=== PATIENT | male | born 1970 | race Caucasian/White ===

== ENCOUNTER 2022-11-16 08:37 | Emergency (ER) | payer OTHER, SELFPAY ==
--- NOTE | ~2022-11-16 | CT_ITS ---
EXAMINATION: CT abdomen pelvis w con DATE: 11/16/2022 12:48 INDICATION: Left upper quadrant abdominal pain following a fall one week ago TECHNIQUE: Computed tomography (CT) of the abdomen and pelvis was performed with 100 CC Omnipaque 350 intravenous contrast. Automated exposure control and iterative reconstruction technique were employe d. Exam dose: 826.91 mGy-cm total exam DLP. COMPARISON: None. FINDINGS: The visualized lung bases are clear. Normal heart size. No pericardial or pleural effusion. There is thickening of the wall of the distal esophagus, possibly due to esophagitis. Normal splenic size. There is a superior splenic cleft, likely an anatomic anatomic variant. The aba ins are smooth and there is no associated perisplenic hematoma. No evidence of recent splenic lacerat ion or perisplenic hematoma. There are numerous pancreatic calcifications, particularly uncinate process, head and to a lesser ext ent pancreatic neck, consistent with chronic pancreatitis. No pancreatic mass lesion or pancreatic du ct dilatation is detected. There is diffuse hepatic steatosis. No hepatic space-occupying mass lesion is evident. No hepatic facundo face nodularity is appreciated. No hepatic space-occupying mass lesion is detected. The gallbladder is present. No gallbladder wall thickening or pericholecystic fluid or fat stranding. No bile duct dilatation. The adrenal glands are unremarkable other than possible very small mass of the lateral limb of each a drenal gland, likely very small adenomas. 5.8 mm lower pole left renal cyst. The kidneys are otherwise unremarkable. No urinary tract calculus or hydroureteronephrosis. There is atherosclerotic calcification but normal caliber of the abdominal aorta and iliac arteries. No intraperitoneal or retroperitoneal or pelvic mass lesion or adenopathy or ascites. There are bilateral fat-containing inguinal hernias and a very small fat-containing umbilical hernia. Diverticulosis of left and right colon; no CT evidence of diverticulitis. Normal appendix. No bowel obstruction, bowel wall thickening, pneumatosis or intraperitoneal free air . Prostate enlargement and mild calcification. Bilateral vas deferens calcifications, usually associated with diabetes. Moderately prominent compression fracture deformity of L5, mild compression fracture deformity of L4. IMPRESSION: Probable colonic cleft or old laceration at the superior aspect of the spleen. This does not appear recent. Hepatic steatosis Chronic pancreatitis Small left renal cyst Diverticulosis of colon; no evidence of diverticulitis Prostate enlargement and mild calcification Bilateral vas deferens calcifications, usually associated with diabetes Compression fractures of L4 and to a greater extent L5 Bilateral fat-containing inguinal hernias. Very small fat-containing umbilical hernia Reviewed, dictated and finalized at [facility]. Reviewed, dictated and finalized at [facility].
--- NOTE | 2022-11-16 08:42 | ECG_ITS ---
Measurements Intervals [place] Rate: 125 P: 31 MS: 157 QRS: 22 QRSD: 80 T: 44 QT: 318 QTc: 460 Interpretive Statements SINUS TACHYCARDIA MINIMAL ST DEPRESSION [0.025+ mV ST DEPRESSION] ABNORMAL RHYTHM ECG NO PREVIOUS ECG AVAILABLE FOR COMPARISON Electronically Signed On 11-16-2022 17:40:39 CDT by Daniel De La Cruz M.D.
[2022-11-16 08:43] VITALS: BP 113/91; PULSE 122; RESP 22; TEMP 36.4; O2SAT 98
--- NOTE | 2022-11-16 09:23 | ED.ALCOHOL ---
HPI - Alcohol General Chief Complaint: Alcohol Stated Complaint: etoh w/d Time Seen by Provider: 11/16/22 09:19 History of Present Illness HPI narrative: Pt presents from [facility] where he is undergoing medical detox for alcohol abuse and withdrawl. Pt receiving librium and got his morning dose today. Pt sent here for evaluatin of LUQ abdominal pain. Pt says he took a nasty fall a few days ago and landed on left side. Pt says he has LUQ abdominal pain that radiates across his abdoment for 3 days and getting worse. Related Data Allergies Allergy/AdvReac Type Severity Reaction Status Date / Time No Known Allergies Allergy Verified 11/16/22 08:51 Review of Systems Review of Systems: All systems reviewed & are unremarkable except as noted in HPI and below Exam Const: General: healthy appearing and no acute distress Nutritional Appearance: well nourished Orientation/consciousness: patient oriented x3 Limitations: no limitations HENMT: Head: normal to inspection Resp: Effort & Inspection: normal respiratory effort Auscultation: clear to auscultation bilaterally Cardio: Rate: regular rate Rhythm: regular rhythm GI: GI Palp: Yes Soft to palpation and Yes Tenderness to palpation present (GI) (LUQ) Auscultation: normal bowel sounds Skin: General skin exam: normal color Wounds: no wounds Neuro: General: patient oriented x3, moves all extremities, no focal motor deficits and CN's II-XI intact bilaterally Speech: normal speech Extrem: General: normal to inspection and no clubbing, cyanosis or edema Psych: Mental Status: mental status grossly normal Affect: normal affect Attitude: cooperative Course Vital Signs Vital signs: Vital Signs Temperature 97.6 F 11/16/22 08:43 Pulse Rate 122 H 11/16/22 08:43 Respiratory Rate 22 H 11/16/22 08:43 Blood Pressure 113/91 H 11/16/22 08:43 Pulse Oximetry 98 11/16/22 08:43 Oxygen Delivery Room Air 11/16/22 08:43 Temperature 97.6 F 11/16/22 08:43 Pulse Rate 100 11/16/22 14:37 Respiratory Rate 14 11/16/22 14:37 Blood Pressure 144/82 H 11/16/22 14:37 Pulse Oximetry 100 11/16/22 14:37 Oxygen Delivery Room Air 11/16/22 08:43 MDM - Alcohol MDM Narrative Medical decision making narrative: will order labs and CT to rule out splenic injury and type and screen. labs look ok no acute splenic injury on CT or free fluid. Can discharge back to rehab. Lab Data 11/16/22 11:51 11/16/22 11:51 Labs: Lab Results 11/16/22 11/16/22 11/16/22 Range/Units 11:51 11:51 11:51 WBC 6.5 (4.5-10.0) K/mm3 RBC 4.97 (4.6-6.20) M/mm3 Hgb 14.9 (14.0-18.0) g/dL Hct 45.9 (42.0-52.0) % MCV 92.4 (80-100) fl MCH 30.0 (26-34) pg MCHC 32.5 (32-36) g/dl RDW 18.9 H (11.5-14.5) % Plt Count 145 L (150-375) k/mm3 MPV 10.6 H (7.4-10.4) fl Immature Gran % (Auto) 1.1 H (0-0.5) % Neut % (Auto) 62.6 (45.5-73.1) % Lymph % (Auto) 24.2 (18.3-44.2) % [place] % (Auto) 10.6 H (2.6-8.5) % Eos % (Auto) 0.9 (0-4.4) % Baso % (Auto) 0.6 (0.2-1.2) % Lymph # (Auto) 1.57 (0.9-3.2) K/mm3 [place] # (Auto) 0.7 H (0.1-0.6) K/mm3 Eos # (Auto) 0.1 (0-0.3) K/mm3 Baso # (Auto) 0.0 (0.0-0.1) K/mm3 Abs Immat Gran (auto) 0.07 H (0.00-0.031) K/mm3 Absolute Neuts (auto) 4.1 (1.3-6.7) K/mm3 Absolute Nucleated RBC 0.0 (0.0-0.012) K/mm3 Nucleated RBC % 0.0 (0.0-0.2) % PT 13.1 (11.1-14.7) Seconds INR 1.0 APTT 28.5 (22.3-36.8) SECONDS Sodium 137 (137-145) mmol/L Potassium 3.8 (3.4-5.0) mmol/L Chloride 99 (98-107) mmol/L Carbon Dioxide 33 H (22-30) mmol/L Anion Gap 5 L (8-16) mmol/L BUN 9 (9-20) mg/dL Creatinine 0.70 (0.7-1.3) mg/dL Estim Creat Clear Calc 121 ml/min Estimated GFR > 60 (59 - ) Glucose 92 (65-110) mg/dL Calcium 9.7 (8.4-10.2) mg/dL Total Bilirubin 0.8 (0.2-1.3) mg/dL
[2022-11-16 09:29] VITALS: BP 103/84; PULSE 107; RESP 23; O2SAT 98
[2022-11-16 10:20] VITALS: BP 117/100; PULSE 106; RESP 24; O2SAT 98
[2022-11-16 11:58] VITALS: PULSE 110
[2022-11-16 12:00] LABS: Basophils Percent Auto 0.6 % (0.2-1.2); Eosinophils Absolute Auto 0.1 K/mm3 (0-0.3); Eosinophils Percent Auto 0.9 % (0-4.4); Hematocrit 45.9 % (42.0-52.0); Hemoglobin 14.9 g/dL (14.0-18.0); Immature Granulocyte Absolute 0.07 K/mm3 (0.00-0.031); Immature Granulocyte Percent A 1.1 % (0-0.5); Lymphocytes Absolute Auto 1.57 K/mm3 (0.9-3.2); Lymphocytes Percent Auto 24.2 % (18.3-44.2); Mean Corpuscular HGB Conc 32.5 g/dl (32-36); Mean Corpuscular Volume 92.4 fl (80-100); Mean Platelet Volume 10.6 fl (7.4-10.4); Monocytes Absolute Auto 0.7 K/mm3 (0.1-0.6); Monocytes Percent Auto 10.6 % (2.6-8.5); Neutrophils Absolute Auto 4.1 K/mm3 (1.3-6.7); Neutrophils Percent Auto 62.6 % (45.5-73.1); Platelet Count Result 145 k/mm3 (150-375); Red Blood Count 4.97 M/mm3 (4.6-6.20); Red Cell Distribution Width 18.9 % (11.5-14.5); White Blood Count 6.5 K/mm3 (4.5-10.0)
[2022-11-16 12:12] LABS: Alanine Aminotransferase 35 U/L (6-50); Albumin Level 4.4 g/dL (3.5-5.1); Alkaline Phosphatase 105 U/L (38-126); Anion Gap 5 mmol/L (8-16); Aspartate Amino Transferase 45 U/L (17-59); Bilirubin,Total 0.8 mg/dL (0.2-1.3); Blood Urea Nitrogen 9 mg/dL (9-20); Calcium 9.7 mg/dL (8.4-10.2); Carbon Dioxide 33 mmol/L (22-30); Chloride 99 mmol/L (98-107); Estimated CRCL calculation 121 ml/min; Estimated Glomerular Filt Rate > 60; Glucose 92 mg/dL (65-110); Lipase 70 U/L (23-300); Potassium 3.8 mmol/L (3.4-5.0); Prothrombin Time 13.1 Seconds (11.1-14.7); Sodium 137 mmol/L (137-145)
[2022-11-16 12:13] VITALS: BP 122/91; PULSE 108; RESP 18; O2SAT 97
[2022-11-16 12:13] LABS: Partial Thromboplastin Time 28.5 SECONDS (22.3-36.8)
[2022-11-16 14:37] VITALS: BP 144/82; PULSE 100; RESP 14; O2SAT 100
--- NOTE | 2022-11-16 14:39 | PC.NURSE ---
Spoke to Shellie and requested ride for pt, pt is discharged and to be going back to [place].
== END 2022-11-16 15:10 | disposition home or self-care (01) ==
PROVIDERS: Emergency Provider Emergency Medicine; PCP Family Medicine
DX: F10.139 Alcohol abuse with withdrawal, unspecified (principal); R10.12 Left upper quadrant pain; R00.0 Tachycardia, unspecified; K76.0 Fatty (change of) liver, not elsewhere classified; K86.1 Other chronic pancreatitis; N28.1 Cyst of kidney, acquired; K57.90 Diverticulosis of intestine, part unspecified, without perforation or abscess without bleeding; N40.0 Benign prostatic hyperplasia without lower urinary tract symptoms; K40.20 Bilateral inguinal hernia, without obstruction or gangrene, not specified as recurrent
CPT/HCPCS: 36415; 74177; 80053; 83690; 85025; 85610; 85730; 86850; 86900; 86901; 93005; 99284; Q9967